=== PATIENT | male | born 1990 | race Two or more races ===

== ENCOUNTER 2024-05-11 16:11 | Emergency (ER) | payer SELFPAY ==
[~2024-05-11 16:11] MED LIST: Iopamidol 370 76% 100 ML VIAL ONE
[2024-05-11] MEDS ORDERED: Morphine 4 MG/ML VIAL ONE (16:24)
[2024-05-11] MEDS ORDERED: Ondansetron PF 4 MG/2 ML Vial ONE (16:25)
[2024-05-11] MEDS ORDERED: Ketorolac Tromethamine 30 MG (1 mL) VIAL ONE ×2 (16:25→18:44)
[2024-05-11 17:00] LABS: ALT (SGPT) 63 U/L (8-55); AST (SGOT) 31 U/L (5-34); Albumin 4.4 g/dL (3.5-5.0); Alkaline Phosphatase 68 U/L (40-110); Anion Gap 14 mmol/L (10-20); BUN (Urea Nitrogen) 13 mg/dL (8.9-20.6); Bilirubin, Total 0.7 mg/dL (0.2-1.2); Calc. Creatinine Clearance 0 mL/min (70-130); Calcium 9.2 mg/dL (7.8-10.44); Carbon Dioxide 22 mmol/L (22-29); Chloride 108 mmol/L (98-107); Estimated GFR 63; Globulin 3.3 g/dL (2.4-3.5); Glucose 122 mg/dL (70-105); Lipase 27 U/L (8-78); Potassium 3.6 mmol/L (3.5-5.1); Protein, Total 7.7 g/dL (6.0-8.3); Sodium 140 mmol/L (136-145)
[2024-05-11 17:02] LABS: Hematocrit 49.2 % (42.0-52.0); Hemoglobin 16.2 g/dL (14.0-18.0); Mean Corpuscular Hemoglobin 28.8 pg (27.0-31.0); Mean Corpuscular Volume 87.3 fl (78.0-98.0); Mean Platelet Volume 8.3 fL (7.4-10.4); Platelet Count 307 10x3/uL (130-400); RBC Distribution Width 11.4 % (11.5-14.5); Red Blood Cell (RBC) Count 5.64 mill/uL (4.70-6.10); White Blood Cell (WBC) Count 10.4 10x3/uL (4.8-10.8)
[2024-05-11 17:06] LABS: MDiff Complete? YES; Manual Diff?? YES
[2024-05-11 17:07] LABS: Band 1 % (5-11); Lymphocytes 4 % (21-51); Monocytes 2 % (0-10); Neutrophil 84 % (42-75); Platelet Adequacy Comment Appears Adequate; RBC Morph Comment Within Normal Limits; Reactive Lymphocytes 9 % (0-10)
[2024-05-11 17:27] LABS: Bilirubin Negative (Negative); Blood, Urine Small (Negative); Clarity Clear (Clear); Glucose, Urine (Dipstick) Negative (Negative); Ketone, Urine Trace mg/dL (Negative); Leukocyte Negative (Negative); Nitrite Negative (Negative); Protein, Urine (Dipstick) Negative (Neg-Trace); Specific Gravity, Urine 1.025 (1.005-1.030); Urobilinogen 0.2 mg/dL (Less than 2); pH, Urine 5.5 (5.0-9.0)
[2024-05-11 17:35] LABS: Bacteria/HPF Rare-Few HPF (None Seen); CAUTI Indications for Culture Pelvic or flank pain; Squamous Epithelial 0-3 HPF (0-3); WBC/HPF 0-3 HPF (0-3)
[2024-05-11 17:36] LABS: Mucous/LPF 2+ LPF (<2+); Urine Culture Reflex No No
[2024-05-11] MEDS ORDERED: cefTRIAXone (ROCEPHIN) 1 GM VIAL ONE (17:50)
[2024-05-11] MEDS ORDERED: Sodium Chloride 0.9% 100 ML ONE (17:51)
== END 2024-05-11 18:58 | disposition home or self-care (01) ==
LOC: MADERS 16:11
DX: N23 Unspecified renal colic (principal)
CPT/HCPCS: 74177; 80053; 81001; 83605; 83690; 85025; 96365; 96375; 96376; J0696; J1885; J2272; J2405; Q9967